=== PATIENT | male | born 1970 | race Caucasian/White ===

== ENCOUNTER 2022-01-12 15:29 | Emergency (ER) | payer SELFPAY ==
[~2022-01-12] VITALS: Ht 177.8 cm; Wt 82.0 kg
[2022-01-12 15:32] VITALS: BP 102/62
[2022-01-12] MEDS ORDERED: ACETAMINOPHEN 325MG TABLET PO STA (15:58)
[2022-01-12 16:28] LABS: BASOPHILS % 0.6 % (0.0-2.0); EOSINOPHILS % 1.4 % (0.0-5.0); HEMATOCRIT. 36.2 % (42.0-52.0); MEAN CORPUSCULAR HEMOGLOBIN 30.2 pg (28.0-32.0); MEAN CORPUSCULAR VOLUME 91.3 fL (80.0-94.0); MEAN PLATELET VOLUME 7.9 fl (7.4-10.4); MONOCYTES % 9.2 % (2.0-8.0); NEUTROPHILS % 74.8 % (40.0-76.0); PLATELET 275 x1000/uL (130-400); RED BLOOD CELL COUNT 3.96 mill/uL (4.7-6.1)
[2022-01-12 16:31] LABS: CHLORIDE 108 mEq/L (98-107)
[2022-01-12] MEDS ORDERED: IBUP-2028 MT (17:58)
[2022-01-12] MEDS ORDERED: IBUPROFEN 400MG TABLET PO NR (18:00)
== END 2022-01-12 18:16 | disposition home or self-care (01) ==
LOC: ER 15:29
DX: R51.9 Headache, unspecified (principal); F15.10 Other stimulant abuse, uncomplicated
CPT/HCPCS: 36415; 71045; 80053; 85025; 99285